=== PATIENT | male | born 1945 | race Caucasian/White ===

== ENCOUNTER 2017-12-09 18:18 | Emergency (ER) | payer MEDICARE ==
[~2017-12-09] VITALS: Ht 175.3 cm; Wt 82.0 kg
[~2017-12-09 18:18] MED LIST: AMOXICILLIN500 MG PO; ASPIRIN325 MG PO; CORTISPORIN OTI10 M2 AD; DILTIAZEM180 M1 PO; FORADIL IN; LORATADINE10 M1 PO; PULMICORT180 MCG IN; SIMVASTATIN20 MG PO; SINGULAIR10 MG PO; VIAGRA50 MG PO; XOPENEX HFA IN; ZETIA10 MG PO
[2017-12-09] MEDS ORDERED: AMOX/K CLAV875 M1 PO (19:28)
[2017-12-09] MEDS ORDERED: ULTRAM50 M1 PO (19:28)
[2017-12-09 19:55] VITALS: BP 133/74
== END 2017-12-09 20:06 | disposition home or self-care (01) ==
LOC: ED 18:18
PROC: 0HQLXZZ Repair Left Lower Leg Skin, External Approach (ICD-10-PCS; principal; 2017-12-09)
DX: S81.852A Open bite, left lower leg, initial encounter (principal); E78.5 Hyperlipidemia, unspecified; J44.9 Chronic obstructive pulmonary disease, unspecified; W54.0XXA Bitten by dog, initial encounter; Y92.89 Other specified places as the place of occurrence of the external cause

== ENCOUNTER 2017-12-11 18:27 | Emergency (ER) | payer MEDICARE ==
[~2017-12-11] VITALS: Ht 175.3 cm; Wt 82.2 kg
[~2017-12-11 18:27] MED LIST changes: +AMOX/K CLAV875 M1 PO; +ULTRAM50 M1 PO
[2017-12-11 19:08] VITALS: BP 128/78
== END 2017-12-11 19:07 | disposition home or self-care (01) ==
LOC: ED 18:27
DX: S81.852D Open bite, left lower leg, subsequent encounter (principal); W54.0XXD Bitten by dog, subsequent encounter; E78.5 Hyperlipidemia, unspecified; J44.9 Chronic obstructive pulmonary disease, unspecified